=== PATIENT | female | born 1995 ===

== ENCOUNTER 2017-03-27 19:08 | Emergency (ER) | payer MEDICAID, OTHER ==
[2017-03-27 19:24] VITALS: BP 119/86; PULSE 84; RESP 18; TEMP 98.3; O2SAT 100
[2017-03-27] MEDS ORDERED: Absorbable Gelatin Sponge Size 12-7 TP STA (19:31)
[2017-03-27] MEDS ORDERED: Absorbable Gelatin Sponge Size 12-7 ONE (19:33)
[2017-03-27] MEDS ORDERED: TDAP Vaccine 0.5 mL Syr IM ONE (19:51)
--- NOTE | 2017-03-27 19:55 | ED PDOC ---
Upper Extremity Pain/Injury Time Seen by Provider: 03/27/17 19:24 Chief Complaint (Nursing): Upper Extremity Problem/Injury Chief Complaint (Provider): Hand Injury History Per: Patient History/Exam Limitations: no limitations Onset/Duration Of Symptoms: Hrs (a few hours prior to arrival) Additional Complaint(s): Vannessa Hart, 21 year old female presents to the ED on 03/27/17 after accidentally cutting her left middle finger with a knife at home a few hours prior to arrival. The patient's injury caused a laceration. She denies any numbness, tingling, or foreign body sensation. Of note, patient's Tetanus is not up to date. Past Medical History Reviewed: Historical Data, Nursing Documentation, Vital Signs Vital Signs: Last Vital Signs Temp 98.3 F 03/27/17 19:21 Pulse 84 03/27/17 19:21 Resp 18 03/27/17 19:21 BP 119/86 03/27/17 19:21 Pulse Ox 100 03/27/17 19:21 - Medical History PMH: No Chronic Diseases - Family History Family History: States: Unknown Family Hx - Allergies Allergies/Adverse Reactions: Allergies Allergy/AdvReac Type Severity Reaction Status Date / Time No Known Allergies Allergy Verified 03/27/17 19:21 Review of Systems Constitutional: Negative for: Other (no foreign body sensation at site of injury ) Musculoskeletal: Positive for: Hand Pain (laceration to left 3rd digit) Neurological: Negative for: Numbness (and no tingling) Physical Exam - Reviewed Nursing Documentation Reviewed: Yes Vital Signs Reviewed: Yes - Physical Exam Appears: Positive for: Non-toxic, No Acute Distress Head Exam: Positive for: ATRAUMATIC, NORMOCEPHALIC Skin: Positive for: Normal Color, Warm, Dry Extremity: Positive for: Normal ROM (full ROM and active bleeding of left 3rd digit), Other (.5 cm linear, very superficial laceration with non pulsatile bleeding to distal phalanx on left 3rd digit) Neurologic/Psych: Positive for: Alert, Oriented (x3) - ECG O2 Sat by Pulse Oximetry: 100 (RA) Pulse Ox Interpretation: Normal - Progress ED Course And Treament: Would irrigated heavily with normal saline. Gel Foam Dressing applied. Medical Decision Making Medical Decision Makin:24 Initial Impression: Hand Injury Initial Plan: * Gelatin Sponge 12-7 [Gelfoam Size 12-7] 1 spg TP STAT * TDAP Vaccine [Boostrix Vaccine Inj] 0.5 ml IM Once * Reevaluation Scribe Attestation: Documented by Nelida Ott, acting as a scribe for Jesús Nguyễn PA-C. Provider Scribe Attestation: All medical record entries made by the Scribe were at my direction and personally dictated by me. I have reviewed the chart and agree that the record accurately reflects my personal performance of the history, physical exam, medical decision making, and the department course for this patient. I have also personally directed, reviewed, and agree with the discharge instructions and disposition. Disposition - Clinical Impression Clinical Impression: Finger laceration - Disposition Disposition Time: 19:51 Condition: STABLE Instructions: Acute Wound Care (ED) Print Language: CHINESE
== END 2017-03-27 20:22 | disposition home or self-care (01) ==
LOC: H.ER 19:08
DX: S61.203A Unspecified open wound of left middle finger without damage to nail, initial encounter (principal); W26.0XXA Contact with knife, initial encounter; Y92.000 Kitchen of unspecified non-institutional (private) residence as the place of occurrence of the external cause